=== PATIENT | female | born 1955 | race Caucasian/White ===

== ENCOUNTER 2019-09-12 14:09 | Emergency (ER) | payer BC ==
[~2019-09-12] VITALS: Ht 170.2 cm; Wt 67.1 kg
[2019-09-12 14:28] VITALS: BP 122/70
[2019-09-12] MEDS ORDERED: FLUORESCEIN SODIUM OPHTH 1 EA STRIP ONE (14:44)
[2019-09-12] MEDS ORDERED: TETRACAINE HCL 0.5% OPHTALMIC 15 ML BOTTLE OP ONE (15:00)
[2019-09-12] MEDS ORDERED: FLUORESCEIN SODIUM OPHTH 1 EA STRIP OP ONE (15:00)
--- NOTE | 2019-09-12 15:13 | NUR ---
Patient discharged to home in stable condition. Written and verbal after care instructions given. Patient verbalizes understanding of instruction.
== END 2019-09-12 15:13 | disposition home or self-care (01) ==
LOC: ER 14:09
DX: H10.9 Unspecified conjunctivitis (principal); I10 Essential (primary) hypertension; Z88.2 Allergy status to sulfonamides; Z88.1 Allergy status to other antibiotic agents; Z86.73 Personal history of transient ischemic attack (TIA), and cerebral infarction without residual deficits; Z85.048 Personal history of other malignant neoplasm of rectum, rectosigmoid junction, and anus